=== PATIENT | female | born 1980 | race Two or more races ===

== ENCOUNTER → 2023-10-14 16:33 | Outpatient (REF) | payer BC, SELFPAY | LOC: RAD 16:33 | PROVIDERS: ATTENDING PHYSICIAN Nurse Practitioner Adult Health; FAMILY PHYSICIAN Family Medicine | DX: N93.9 Abnormal uterine and vaginal bleeding, unspecified (principal); N93.0 Postcoital and contact bleeding | CPT/HCPCS: 76830; 76856 ==